=== PATIENT | female | born 1955 | race African-American/Black ===

== ENCOUNTER 2019-12-14 14:24 | Emergency (ER) | payer OTHER ==
[~2019-12-14] VITALS: Ht 177.8 cm; Wt 75.7 kg
--- NOTE | 2019-12-14 14:28 | NUR ---
BIB [facility] FOR BACK PAIN EVALBIB [facility] FOR BACK PAIN EVAL, PT TO BED 7, AWAKE, -SOB, NAD NOTED, VSS, PENDING MD PELAYO
[2019-12-14] MEDS ORDERED: IV NS 0.9% 1,000 ML BAG IV ONE (14:30)
[2019-12-14] MEDS ORDERED: KETOROLAC TROMETHAMINE INJ 30 MG/ML VIAL IV ONE (14:30)
[2019-12-14] MEDS ORDERED: METF-440 PO (14:42)
[2019-12-14] MEDS ORDERED: GABA-534 PO (14:42)
[2019-12-14] MEDS ORDERED: QUET50TA PO (14:42)
[2019-12-14] MEDS ORDERED: ASPI-1169 PO (14:42)
[2019-12-14] MEDS ORDERED: DOCU250C14 PO (14:42)
[2019-12-14] MEDS ORDERED: ATOR40TA PO (14:42)
[2019-12-14] MEDS ORDERED: ATEN25TA PO (14:42)
[2019-12-14] MEDS ORDERED: MIRT15TA7 PO (14:42)
[2019-12-14] MEDS ORDERED: KETOROLAC TROMETHAMINE 15 MG/ML VIAL ONE (14:47)
[2019-12-14 14:52] LABS: BASOPHILS # (AUTO) 0.1 /CMM (0.0-0.2); BASOPHILS % (AUTO) 1.4 % (0.0-2.0); EOSINOPHILS % (AUTO) 2.2 % (0.0-6.0); HEMATOCRIT 38 % (33-45); HEMOGLOBIN 12.3 g/dL (11.5-14.8); LYMPHOCYTES # (AUTO) 1.6 /CMM (0.8-4.8); LYMPHOCYTES % (AUTO) 26.5 % (20.0-44.0); MEAN CORPUSCULAR HGB CONC 33 g/dl (31.0-36.0); MEAN CORPUSCULAR VOLUME 101 fL (82-100); MONOCYTES # (AUTO) 0.6 /CMM (0.1-1.30); MONOCYTES % (AUTO) 9.4 % (2.0-12.0); NEUTROPHILS # (AUTO) 3.7 /CMM (1.8-8.9); NEUTROPHILS % (AUTO) 60.5 % (43.0-81.0); PLATELET COUNT (AUTO) 262 /CMM (150-450); RED BLOOD CELL COUNT(AUTO) 3.74 MIL/uL (4.0-5.2); WHITE BLOOD COUNT (AUTO) 6.1 K/uL (4.3-11.0)
[2019-12-14 14:57] LABS: CALCIUM, SERUM 9.7 mg/dL (8.5-10.1); POTASSIUM 4.8 mmol/L (3.5-5.1)
[2019-12-14 15:04] LABS: ALBUMIN 3.6 g/dL (3.4-5.0); BILIRUBIN,DIRECT 0.1 mg/dL (0.0-0.2); BILIRUBIN,TOTAL 0.4 mg/dL (0.2-1.0); TOTAL PROTEIN, SERUM 7.4 g/dL (6.4-8.2)
[2019-12-14] MEDS ORDERED: ALBUTEROL FS 2.5 MG/3 ML VIAL.NEB ONE (15:21)
[2019-12-14] MEDS ORDERED: ALBUTEROL FS 2.5 MG/3 ML VIAL.NEB NEB ONE (15:30)
--- NOTE | 2019-12-14 16:12 | NUR ---
URINE COLLECTED, SENT TO LAB
[2019-12-14 16:17] LABS: APPEARANCE,URINE Clear (CLEAR); BILIRUBIN,URINE Negative (NEGATIVE); BLOOD, URINE Negative Ery/uL (NEGATIVE); COLOR,URINE Yellow (YELLOW); KETONES,URINE Negative (NEGATIVE); LEUKOCYTE ESTERASE ,URINE Negative (NEGATIVE); NITRITE, URINE Negative (NEGATIVE); PH,URINE 5.5 (5.0-8.0); PROTEIN,URINE Negative (NEGATIVE); UGLUCOSE Negative (NEGATIVE); UROBILINOGEN,URINE 0.2 EU/dL (0.2)
--- NOTE | 2019-12-14 17:11 | NUR ---
[facility] ETA 184
--- NOTE | 2019-12-14 18:47 | NUR ---
PT DC BACK TO [facility], PT LEFT IN STABLE CONDITION, VSS, NAD NOTED, FAMILY AT [facility], REPORT GIVEN TO [facility] STA[facility]. ALL PAPERWORK SENT
[2019-12-14 19:34] VITALS: BP 110/75
== END 2019-12-14 18:47 | disposition home or self-care (01) ==
LOC: ER 14:31
DX: M54.5 Low back pain (principal); F03.90 Unspecified dementia, unspecified severity, without behavioral disturbance, psychotic disturbance, mood disturbance, and anxiety; I10 Essential (primary) hypertension; E11.9 Type 2 diabetes mellitus without complications; Z88.8 Allergy status to other drugs, medicaments and biological substances; Z79.84 Long term (current) use of oral hypoglycemic drugs; Z79.82 Long term (current) use of aspirin; Z79.899 Other long term (current) drug therapy
CPT/HCPCS: 36415; 72131; 76857; 80048; 80076; 81001; 82962; 85025; 93005; 94644; 96374; 99285; J1885; J7030; 81000-TC